=== PATIENT | male | born 1995 | race Caucasian/White ===

== ENCOUNTER 2018-08-27 06:42 | Day surgery (SDC) | payer OTHER ==
[2018-08-27] VITALS (18 sets, daily range): BP systolic 106–126; BP diastolic 60–89; PULSE 66–90; RESP 11–21; Ht 167.6 cm; Wt 71.9 kg
[~2018-08-27] VITALS: Ht 167.6 cm; Wt 71.9 kg
[2018-08-27] MEDS ORDERED: LIDOCAINE 2% (SDV) 5 ML INJ ONE (07:00)
[2018-08-27] MEDS ORDERED: PROPOFOL 200 MG INJ ONE (07:00)
[2018-08-27] MEDS ORDERED: SERT50TA6 PO (08:30)
[2018-08-27] MEDS ORDERED: BACITRACIN/POLYMYXIN 28.35 GM OINT TOP ONE (13:17)
[2018-08-27] MEDS ORDERED: COCAINE 4% 4 ML TOP ONE (13:17)
[2018-08-27] MEDS ORDERED: LIDOCAINE 1%/EPI (1:100,000) (MDV) 20 ML ONE (13:17)
--- NOTE | 2018-08-27 13:29 | PREAC ---
Date/Time of Note Date/Time of Note DATE: 08/27/18 TIME: 13:27 Anesthesia Eval and Record Evaluation Time Pre-Procedure Interview DATE: 08/27/18 TIME: 13:27 Age 23 Sex male NPO: 8 hrs Preoperative diagnosis turbinate hypertrophy and deviated septum Planned procedure bilateral laser turbinoplasty Past Medical History Past Medical History: Includes Psych: Depression Surgery & Anesthesia Issues No known issue Meds Anticoagulation: No Beta Allan within 24 hr: No Reason Beta Allan not given: Pt. not on B-Allan Reported Medications Sertraline Hcl* (Sertraline Hcl*) 50 Mg Tablet, 50 MG PO DAILY, #30 TAB 08/27/18 Meds reviewed: Yes Allergies Coded Allergies: No Known Allergy (Unverified , 08/27/18) Allergies Reviewed: Yes Labs/Studies Labs Reviewed: Reviewed by anesthesiologist test: N/A Pre-procedure Exam Last vitals Vital Signs Date Temp Pulse Resp B/P (MAP) Pulse Ox O2 O2 Flow FiO2 Time Delivery Rate 08/27/18 98.3 67 16 110/68 100 Room Air 09:30 (82) Airway: Adequate mouth opening, Adequate thyromental dist Mallampati: Mallampati II Teeth: Normal Lung: Normal Heart: Normal ASA Physical Status ASA physical status: 1 Emergency: None Planned Anesthetic General/MAC: ETT Planned Pain Management Parenteral pain med Pre-operative Attestations Prior to commencing anesthesia and surgery, the patient was re-evaluated, there was verification of: *The patient's identity *The results of appropriate recent lab work and preoperative vital signs *The above evaluation not changing prior to induction *Anesthetic plan, risk benefits, alternative and complications discussed with patient/family; questions answered; patient/family understands, accepts and wishes to proceed. KAIDEN PRINGLE MD Aug 27, 2018 13:29
[2018-08-27] MEDS ORDERED: MEPERIDINE 25 MG INJ IV PRN (13:30)
[2018-08-27] MEDS ORDERED: ONDANSETRON 4 MG INJ IV PRN (13:30)
[2018-08-27] MEDS ORDERED: PROCHLORPERAZINE 10 MG INJ IV PRN (13:30)
[2018-08-27] MEDS ORDERED: OXYCODONE/ACETAMINOPHEN (5/325) TAB PO PRN (13:30)
[2018-08-27] MEDS ORDERED: DIPHENHYDRAMINE 50 MG INJ IV PRN (13:30)
[2018-08-27] MEDS ORDERED: FENTAnyl 50 MCG/ML VIAL IV PRN (13:30)
[2018-08-27] MEDS ORDERED: FENTAnyl 50 MCG/ML VIAL ONE (13:41)
[2018-08-27] MEDS ORDERED: MIDAZOLAM 1 MG/ML 2 ML INJ ONE (13:41)
[2018-08-27] MEDS ORDERED: CEFAZOLIN 1 GM INJ ONE (13:54)
[2018-08-27] MEDS ORDERED: FAMOTIDINE 20 MG INJ ONE (13:55)
[2018-08-27] MEDS ORDERED: ONDANSETRON 4 MG INJ ONE (13:55)
[2018-08-27] MEDS ORDERED: DEXAMETHASONE 4 MG/ML 5 ML INJ ONE (13:55)
--- NOTE | 2018-08-27 14:00 | HPN ---
Date/Time of Note Date/Time of Note DATE: 08/27/18 TIME: 14:00 Interval H&P Admission Note Pt. seen H&P reviewed: No system changes PHUONG GARCIAS M.D. Aug 27, 2018 14:00
[2018-08-27] MEDS ORDERED: GLYCOPYRROLATE 0.4 MG INJ ONE ×2 (14:42→14:48)
[2018-08-27] MEDS ORDERED: NEOSTIGMINE 3 MG/3 ML SYRINGE ONE ×2 (14:42→14:48)
--- NOTE | 2018-08-27 14:57 | OPR ---
Date/Time of Note Date/Time of Note DATE: 08/27/18 TIME: 14:53 Operative Report Procedure Date: Aug 27, 2018 Preoperative Diagnosis 1. SEPTAL DEVIATION. 2. BILATERAL NASAL TURBINATE TISSUE HYPERTROPHY. 3. CHRONIC NASAL OBSTRUCTION. Postoperative Diagnosis SAME. Operation/Procedure Performed 1. SEPTOPLASTY VIA SMR. 2. BILATERAL KTP 532 NM LASER TURBINATE REDUCTION. Surgeon see signature line [employer] NONE. Anesthesia Type: general ( WITH OT TUBE INTUBATION. TOPPICAL 4% 4CC COCCAINE AND 10 CC 1% LIDO WITH EPI 1:1000,000 SOLN. ) Estimated Blood Loss: 10 - 50 ml's Transfusion none Specimen NONE. Grafts/Implants none Tubes/Drains NONE. Complications none Pt Condition Post Procedure: stable Disposition: PACU Indications TO IMPROVE BREATHING. Procedure Description SEE DICTATED OPERATIVE REPORT. PHUONG GARCIAS M.D. Aug 27, 2018 14:57
--- NOTE | 2018-08-27 14:58 | PDOCDIS ---
Discharge Instructions DIAGNOSIS Discharge Diagnosis 1. SEPTAL DEVIATION. 2. BILATERAL NASAL TURBINATE TISSUE HYPERTROPHY. 3. CHRONIC NASAL OBSTRUCTION. CONDITION [id number] Patient Condition: [id number] Good HOME CARE INSTRUCTIONS: [id number] Diet Instructions: [id number] Regular ACTIVITY: [id number] Activity Restrictions: [id number] Slowly Increase Activity Rest between Activity Avoid heavy lifting Avoid Heavy Housework [id number] Bathing Restrictions: [id number] Tub Bath FOLLOW UP/APPOINTMENTS Follow-up Plan MY OFFICE IN 10 TO 14 DAYS. SCHOOL/WORK RELEASE May return to School/Work on: Sep 04, 2018 May return to School/Work with: No Restrictions PHUONG GARCIAS M.D. Aug 27, 2018 14:58
--- NOTE | 2018-08-27 15:09 | PAC ---
Date/Time of Note Date/Time of Note DATE: 08/27/18 TIME: 15:09 Post-Anesthesia Notes Post-Anesthesia Note Last documented vital signs Vital Signs Date Temp Pulse Resp B/P (MAP) Pulse Ox O2 O2 Flow FiO2 Time Delivery Rate 08/27/18 98.3 67 16 110/68 100 Room Air 09:30 (82) Activity: WNL Respiratory function: WNL Cardiovascular function: WNL Mental status: Baseline Pain reasonably controlled: Yes Hydration appropriate: Yes Nausea/Vomiting absent: Yes Comments BP: 122/89 HR: 92 RR: 15 T: 98 SaO2: 100% KAIDEN PRINGLE MD Aug 27, 2018 15:09
[2018-08-27] MEDS: HYDROmorphONE 1 MG/5 ML IV SYRINGE IV PRN ×3 (15:23→15:52)
[2018-08-27] MEDS ORDERED: METOCLOPRAMIDE 10 MG INJ IV PRN (15:30)
--- NOTE | 2018-08-27 16:58 | OPR ---
DATE OF OPERATION: 08/27/2018 SURGEON: Ambrocio Garcia MD PREOPERATIVE DIAGNOSES: 1. Septal deviation. 2. Bilateral nasal turbinate tissue hypertrophy. 3. Chronic nasal obstruction. POSTOPERATIVE DIAGNOSES: 1. Septal deviation. 2. Bilateral nasal turbinate tissue hypertrophy. 3. Chronic nasal obstruction. OPERATIONS PERFORMED: 1. Septoplasty using submucosal resection technique. 2. Bilateral laser turbinoplasty procedure using a KTP 532 nanometer laser using submucosal resectio n technique. ESTIMATED BLOOD LOSS: Less than 10 mL. COMPLICATIONS: None. SPECIMENS: No specimens sent to the lab. FINDINGS DURING PROCEDURE: Severely deviated anterior septum with nasal obstruction. The patient wa s also found to have enlarged turbinates bilaterally. ANESTHETIC USED: General anesthesia with orotracheal tube intubation. The patient also received 10 mL of 1% lidocaine with epinephrine 1:100,000 solution. The patient also received cocaine 4% using 4 mL on cottonoids. The patient was given IV Ancef before the case was begun. DISPOSITION: The patient left the operating room in good and satisfactory condition. INDICATIONS: Mr. 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 The patient has been treated with multiple decongestants an d nasal steroids sprays which have met with failure. The patient was found on CT scan evaluation to have a deviated septum to the right causing anatomical obstruction. The patient is currently schedul ed for today's procedures which include bilateral laser turbinoplasty procedure with septoplasty proc edure. Risks, benefits and alternatives have been explained thoroughly to Mr. Hickey. T hey include infection, bleeding, scar formation and possible septal perforation. He also understands the risks of possible reaction to general local anesthetic agents. He also understands the risks of possible failure of procedure and this procedure may not correct his nasal obstruction. He signed a consent once his questions were answered. DESCRIPTION OF PROCEDURE: The patient was taken to the operating room, placed on the surgical table in supine position, made comfortable by the anesthesiologist, Dr. Rincon. The patient had EKG, satura tion monitor and blood pressure cuff applied. At this point, the patient was then given IV injection through a previously started IV in the preinduction area. The patient was placed under general anes thesia before the patient was rendered with orotracheal tube intubation. The tube was taped to the l eft corner of the mouth and the eyes were taped for protection. At this point, the brief time-out wi th patient identification and procedures entertained and all were in agreement. At this point, the p atient's vital signs were noted to be stable, was then draped out in usual sterile fashion using spli t sheet and wet towels around the nasal area in preparation for laser use. At this point, the nasal cavity was inspected and the patient was found to have an anterior flexion of the septum on the right side. The patient was also found to have enlarged turbinates bilaterally. The turbinates were then injected using 1% lidocaine with epinephrine 1:100,000 as well as the septal margin. Cocaine was th en applied to the nose and the anterior ethmoid behind the posterior turbinate areas. At this point, the patient was then found to be under general anesthesia. All personnel in the operating room were asked to place safety goggles on for their protection. KTP 532 nanometer laser was then made ready at 8 yanez continuous power with foot pedal activator during the straight hand-held handpiece with castillo ction attachment. Using a stabbing technique in a posterior direction, the left inferior turbinate w as reduced inside in the submucosal space. The inferior turbinate was then outfractured towards the medial wall of the maxillary sinus to give greater patency of the nasal cavity. The right side was d one in a similar fashion. It too was reduced in size submucosal space area. At this point, th e smoke was removed through the evacuator as there was minimal bleeding seen. This ended the laser p ortion of the procedures. A hemitransfixion incision was made on the right side of the nose and the anterior septal margin. At this point, the anteroseptal was then freed from the underlying submucosa . At this point, it was sutured back in its normal anatomical positioning with a 4-0 Vicryl suture u sing a subdermal stitch. This was done x3 before the epithelium was closed. This rendered the septu m straight at the end of the procedure. Bacitracin ointment was then placed over the nose as a packi ng. A mustache dressing was then applied at the end of the procedure. The patient was extubated and taken to recovery room where he is currently doing well, expects to be discharged home unless postop erative complications develop. Dictated By: AMBROCIO JIMENEZ/ROBERT Conf#: [id number] DID#: [id number]
== END 2018-08-27 17:30 | disposition home or self-care (01) ==
LOC: SDS 06:42
PROVIDERS: ATTEND Otolaryngology Otolaryngology/Facial Plastic Surgery
DX: J34.2 Deviated nasal septum (principal); J34.3 Hypertrophy of nasal turbinates; J34.89 Other specified disorders of nose and nasal sinuses
CPT/HCPCS: 30140; 30520; J0690; J0780; J1100; J1170; J2250; J2405; J2710; J3010; Z7512; Z7610; J2175